=== PATIENT | male | born 1960 | race Caucasian/White ===

== ENCOUNTER 2017-04-20 07:02 | Emergency (ER) | payer OTHER ==
[2017-04-20 07:17] VITALS: BP 130/78
--- NOTE | 2017-04-20 11:45 | UC ---
Patito Meléndez Nilda, scribed for Kelly Munroe MD on 04/20/17 at 0743 . Dizzy HPI HPI Summary: This patient is a 56 year old M presenting to [facility] [place] with a chief complaint of dizziness since 1100 last night. Symptoms aggravated and alleviated by nothing. Patient reports nausea and fever (hot flashes). This morning, the patient noticed a white spot on his tonsils. He denies cough and rash. The patient reports that the first time he had strep throat he had similar symptoms of dizziness. - History Of Current Complaint Chief Complaint: UCGeneralIllness Stated Complaint: SORE THROAT Time Seen by Provider: 04/20/17 07:11 Hx Obtained From: Patient Onset/Duration: Sudden Onset Timing: Constant Severity Currently: Mild Character: Dizzy Aggravating Factor(s): Nothing Alleviating Factor(s): Nothing Associated Signs And Symptoms: Positive: Nausea - Allergies/Home Medications Allergies/Adverse Reactions: Allergies Allergy/AdvReac Type Severity Reaction Status Date / Time Penicillins Allergy Unknown Verified 04/20/17 07:13 Reaction Details PMH/Surg Hx/FS Hx/Imm Hx Previously Healthy: Yes Cardiovascular History: Hypertension - Surgical History Surgical History: Yes Surgery Procedure, Year, and Place: inguinal hernia repair at age 6 - Family History Known Family History: Positive: Hypertension, Diabetes - Social History Alcohol Use: Daily Alcohol Amount: beer/dinner Substance Use Type: None Smoking Status (MU): Never Smoked Tobacco Review of Systems Constitutional: Fever Skin: Negative - negative rash Eyes: Negative ENT: Sore Throat, Other - dizzy Respiratory: Cough - negative cough Cardiovascular: Negative Gastrointestinal: Nausea Genitourinary: Negative Motor: Negative Neurovascular: Negative Musculoskeletal: Negative Neurological: Other - dizziness Psychological: Negative Is Patient Immunocompromised?: No All Other Systems Reviewed And Are Negative: Yes Physical Exam Triage Information Reviewed: Yes Appearance: Well-Nourished Vital Signs: Initial Vital Signs Temp 96.6 F 04/20/17 07:14 Pulse 52 04/20/17 07:14 Resp 16 04/20/17 07:14 BP 130/78 04/20/17 07:14 Pulse Ox 99 04/20/17 07:14 Vital Signs Reviewed: Yes Eye Exam: Normal ENT: Positive: Pharyngeal erythema - white spot right tonsil. uvula midline., TM dull, Other: - Posterior pharynx is red, midine airway non-obstructed Neck exam: Normal Neck: Positive: Supple, Nontender, No Lymphadenopathy Respiratory Exam: Normal - no dyspnea, no tachypnea, normal respiratory rate Respiratory: Positive: Chest non-tender, Lungs clear, Normal breath sounds, No respiratory distress Cardiovascular Exam: Normal - Heart rate regular, good general skin color, good capillary refill Cardiovascular: Positive: RRR, No Murmur, Pulses Normal Abdominal Exam: Normal Abdomen Description: Positive: Nontender, No Organomegaly, Soft Bowel Sounds: Positive: Present Musculoskeletal Exam: Normal Musculoskeletal: Positive: Strength Intact Neurological Exam: Normal - nonfocal, grossly intact. However, c/o dizziness ( unsteady) with quick position change. Psychological Exam: Normal - conversing easily and appropriately Skin Exam: Normal - no visible or reported rash Dizzy Course/Dx - Course Course Of Treatment: This patient is a 56 year old M presenting to [facility] with a chief complaint of dizziness since 1100 last night. Symptoms aggravated and alleviated by nothing. Patient reports nausea and fever (hot flashes). This morning, the patient noticed a white spot on his tonsils. He denies cough and rash. The patient reports that the first time he had strep throat he had similar symptoms of dizziness. Patient was discharged with a diagnosis of pharyngitis and dizziness and a script for Meclizine and zofran. F/u PCP as soon as able. Considered several options re dx, including strep. Likely viral however will need further eval / tx if sx change or worsen. Questions as posed answered to the best of my ability. - Differential Dx/Diagnosis Provider Diagnoses: Dizziness. Pharyngitis Discharge - Discharge Plan Condition: Stable Disposition: HOME Prescriptions: Meclizine HCl [Meclizine 25] 25 mg PO Q8H PRN #20 tab PRN Reason: Dizziness Patient Education Materials: Pharyngitis (ED), Dizziness (ED) Referrals: Pop Sherman MD [Primary Care Provider] - Additional Instructions: Please follow up with your primary care provider in 1-2 weeks if possible (or when you are established with primary care physician). Seek medical attention for worse or new problems in the meantime. Do not claritin at the same time a meclizine. One or the other, not both at the same time. Drink plenty of water. The documentation as recorded by the Patito griffin Nilda accurately reflects the service I personally performed and the decisions made by me, Kelly Munroe MD.
== END 2017-04-20 07:55 | disposition home or self-care (01) ==
LOC: UCEAST 07:02
DX: J02.9 Acute pharyngitis, unspecified (principal); Z88.0 Allergy status to penicillin; I10 Essential (primary) hypertension; R42 Dizziness and giddiness
CPT/HCPCS: 87651; 99212; G0463